=== PATIENT | female | born 1995 | race Caucasian/White ===

== ENCOUNTER 2017-06-16 19:36 | Emergency (ER) | payer BC, MEDICAID ==
[~2017-06-16] VITALS: Ht 157.5 cm; Wt 79.4 kg
--- NOTE | 2017-06-16 19:44 | NUR ---
PT.AMBULATED TO ER MASTER
[2017-06-16 19:46] VITALS: BP 134/83
--- NOTE | 2017-06-16 19:51 | NUR ---
22Y/F PT. PRESENTS TO ED WITH C/O LT. EAR ABSCESS X 1 WK. NO MED HX. AAO X4, AMBULATORY WITH STEADY GAIT. LT. EAR ABSCESS, C/O PAIN 11/04. VSSHEY Gallego MADE AWARE OF PT. STATUS.
--- NOTE | 2017-06-16 19:51 | NUR ---
Patient being evaluated by SHEY CUNHA at bedside.
--- NOTE | 2017-06-16 19:53 | NUR ---
PT.BIB TO ER BED 3
[2017-06-16] MEDS ORDERED: LIDOCAINE 1% 500 MG/50 ML VIAL INJ SCH (19:55)
--- NOTE | 2017-06-16 19:55 | NUR ---
SHEY CUNHA PERFORMS I AND D AT BEDSIDE.
[2017-06-16] MEDS ORDERED: LIDOCAINE MPF 1% - **ER/OR** 5 ML ONE (20:00)
--- NOTE | 2017-06-16 20:00 | NUR ---
WOUND CULTURE COLLECTED
[2017-06-16] MEDS ORDERED: BACITRACIN OINT 500 UNITS/GM PKT TP ONE (20:16)
--- NOTE | 2017-06-16 20:17 | NUR ---
PT BACK TO ER CHAIR/D
--- NOTE | 2017-06-16 20:32 | NUR ---
Patient discharged with v/s stable. Written and verbal after care instructions given and explained. Patient alert, oriented and verbalized understanding of instructions. Ambulatory with steady gait. All questions addressed prior to discharge. ID band removed. Patient advised to follow up with PMD. Rx of KEFLEX 500 MG, NORCO 5/325MG,MOTRIN 600 MG, SEPTRA DS 800/160 MG given. Patient educated on indication of medication including possible reaction and side effects. Opportunity to ask questions provided and answered.
[2017-06-16 20:38] VITALS: BP 134/83
== END 2017-06-16 20:32 | disposition home or self-care (01) ==
LOC: MED 19:36
DX: H60.02 Abscess of left external ear (principal)
CPT/HCPCS: 69000; 87070; 99284; J2001

== ENCOUNTER 2018-06-06 19:27 | Emergency (ER) | payer BC, MEDICAID ==
[~2018-06-06] VITALS: Ht 157.5 cm; Wt 89.4 kg
[2018-06-06 20:21] VITALS: BP 159/97
--- NOTE | 2018-06-06 20:24 | NUR ---
PT AMBULATED TO LOBBY WITH VSS.
--- NOTE | 2018-06-06 21:26 | NUR ---
PT AMBULATED TO CHAIR A
--- NOTE | 2018-06-06 21:27 | NUR ---
PATIENT PRESENTS TO ED WITH C/O PAIN TO THE LEFT EAR X 1 WEEK. PT STATED SHE HAS HAD THIS PAIN A FEW TIMES. THERE IS A SMALL BUMP/ SWELLING WITH REDNESS TO SITE. PATIENT STATES PAIN OF 6/10 AT THIS TIME; PT IS A/OX4. VSS; PATIENT POSITIONED FOR COMFORT; HOB ELEVATED; BEDRAILS UP X2; BED DOWN. ER MD MADE AWARE OF PT STATUS.
[2018-06-06 21:58] VITALS: BP 159/97
--- NOTE | 2018-06-06 21:58 | NUR ---
Patient discharged with v/s stable. Written and verbal after care instructions given and explained. Patient alert, oriented and verbalized understanding of instructions. Ambulatory with steady gait. All questions addressed prior to discharge. ID band removed. Patient advised to follow up with PMD. Rx of KEFLEX AND BACTRIM WAS given. Patient educated on indication of medication including possible reaction and side effects. Opportunity to ask questions provided and answered.
== END 2018-06-06 21:58 | disposition home or self-care (01) ==
LOC: MED 19:27
DX: L02.01 Cutaneous abscess of face (principal)
CPT/HCPCS: 99283; 99284

== ENCOUNTER 2018-06-09 23:50 | Emergency (ER) | payer BC, MEDICAID ==
[~2018-06-09] VITALS: Ht 157.5 cm; Wt 84.8 kg
[2018-06-10] VITALS: BP 122/73
--- NOTE | 2018-06-10 00:04 | NUR ---
PT AMBULATED TO LOBBY WITH VSS.
--- NOTE | 2018-06-10 00:44 | NUR ---
PATIENT PRESENTS TO ED WITH C/O LEFT EAR ABCESS. PAIN 10/10 PT SKIN IS PINK/WARM/DRY; AAOX4 WITH EVEN AND STEADY GAIT; LUNGS CLEAR BL; HR EVEN AND REGULAR, PATIENT POSITIONED FOR COMFORT; HOB ELEVATED; BEDRAILS UP X2; BED DOWN. ER MD MADE AWARE OF PT STATUS.
--- NOTE | 2018-06-10 00:44 | NUR ---
PT AMBULATED TO ER BED 05
[2018-06-10] MEDS ORDERED: LIDOCAINE 1% 500 MG/50 ML VIAL INJ SCH (01:30)
[2018-06-10] MEDS ORDERED: LIDOCAINE MPF 1% 5mL VIAL ONE (01:39)
--- NOTE | 2018-06-10 01:40 | NUR ---
I&D Procedure done by Dr Ashley MARCUM. amt of bleeding noted. Wound packed. DSD applied. Pt procedure. Wound care discussed w/ patient.
[2018-06-10 01:50] VITALS: BP 122/73
--- NOTE | 2018-06-10 01:50 | NUR ---
I&D Procedure done by Dr MARCUM. COTY amt of bleeding noted. Wound packed with . DSD applied. Pt TOLERATED THE procedure WELL. Wound care discussed w/ patient.
--- NOTE | 2018-06-10 01:58 | NUR ---
WOUND CLEANED AND DRESSED.
--- NOTE | 2018-06-10 02:04 | NUR ---
Patient discharged with v/s stable. Written and verbal after care instructions given and explained. Patient verbalized understanding. Ambulatory with steady gait. All questions addressed prior to discharge. Advised to follow up with PMD.
== END 2018-06-10 02:04 | disposition home or self-care (01) ==
LOC: MED 23:50
DX: H60.02 Abscess of left external ear (principal)
CPT/HCPCS: 69000; 99284; J2001

== ENCOUNTER 2019-02-05 09:15 | Emergency (ER) | payer BC, MEDICAID ==
[~2019-02-05] VITALS: Ht 157.5 cm; Wt 89.4 kg
[2019-02-05 09:21] VITALS: BP 135/77
--- NOTE | 2019-02-05 09:24 | NUR ---
Patient ambulated to bed 11. RN evaluating patient at bedside.
--- NOTE | 2019-02-05 09:34 | NUR ---
C/O PAINFUL BUMP TO PTS L ARM ANTECUBITAL X 5 DAYS. PT DENIES INJURY/TRUAMA. SITE WARM TO TOUCH. NO REDNESS OR SWELLING NOTED. PAIN 9/10 TO TOUCH. PT STATES SHE USED A WARM WASHCLOTH WITH NO RELIEF FROM PAIN. PT STATES SHE THINKS IT IS A CYST BECAUSE SHES HAD ONE BEFORE. VS STABLE. PT ALERT AND AWAKE. AMBULATES WITH STEADY GAIT. BED IS DOWN, LOCKED, BED RAIL X 1, ERMD TO SEE PT. HX: NONE RX: NONE
--- NOTE | 2019-02-05 09:41 | NUR ---
Dr. Cuevas is evaluating the patient at bedside.
[2019-02-05] MEDS ORDERED: HYDROcodone/APAP 5/325 MG 1 TAB TAB PO ONE (09:45)
[2019-02-05] MEDS ORDERED: ONDANSETRON 4 MG ODT PO ONE (09:45)
--- NOTE | 2019-02-05 09:55 | NUR ---
TRISTIAN AND ZOFRAN ADMINISTERED BY PAU REY
--- NOTE | 2019-02-05 10:18 | NUR ---
pt states some relief from pain. pain 09/04
[2019-02-05 10:20] VITALS: BP 129/75
--- NOTE | 2019-02-05 10:20 | NUR ---
Patient discharged with v/s stable. Written and verbal after care instructions given and explained regardign abscess. Patient alert, oriented and verbalized understanding of instructions. Ambulatory with steady gait. All questions addressed prior to discharge. ID band removed. Patient advised to return if s/s worsen. Rx of keflex, ibuprofen prn, bactrim given. Patient educated on indication of medication including possible reaction and side effects. Opportunity to ask questions provided and answered. pt states she has a ride to pick her up
== END 2019-02-05 10:20 | disposition home or self-care (01) ==
LOC: MED 09:15
DX: L03.114 Cellulitis of left upper limb (principal); F15.10 Other stimulant abuse, uncomplicated
CPT/HCPCS: 99283; Q0162